=== PATIENT | male | born 2000 | race Two or more races ===

== ENCOUNTER 2025-02-26 22:44 | Observation (INO) | payer OTHER, SELFPAY ==
--- NOTE | 2025-02-26 22:47 | EKG_ITS ---
[facility] Test Date: 2025-02-26 Pat Name: NOMI BLUE Department: Room: - Gender: Male Bilingual Instructor: : 2000 Requested By: ED Temporary Provider Order Number: [id number] Reading MD: ED Temporary Provider Measurements Intervals [place] Rate: 106 P: RI: QRS: 39 QRSD: 90 T: 41 QT: 295 QTc: 392 Interpretive Statements ATRIAL FIBRILLATION WITH RAPID VENTRICULAR RESPONSE ABNORMAL RHYTHM ECG Compared to ECG 07/01/2023 11:37:40 Sinus tachycardia no longer present Short RI interval no longer present ST (T wave) deviation no longer present /store/S0/[id number].pdf
[2025-02-26 23:07] VITALS: BP 122/64; PULSE 108; RESP 18; TEMP 37.3; O2SAT 100
[2025-02-26 23:34] VITALS: PULSE 121
--- NOTE | 2025-02-26 23:38 | EDNOTE_ITS ---
ED Chest Pain RME/HPI General Chief Complaint: Chest Pain Stated Complaint: CHEST PAIN Time Seen by Provider: 02/26/25 23:21 Arrival date/time: 02/26/25 22:44 RME / HPI RME / HPI narrative: This section includes all my notes and documentations, including HPI, PE, and ED course. Virgil Dominguez MD HPI: 24yo male accompanied by his mom presents to the ED for a chief complaint of palpitations. Patient states he started having intermittent palpitations today at 2130 (a couple of hours ago), describing it as a hard beat . He reports associated left-sided chest pain. He endorses having a history of abnormal heart rates or rhythm, but was not given a specific diagnosis. Denies any history of aFib. He is not on any medications. Denies any cough, fever, chills or any other associated symptoms. No other complaints reported. ROS: All negative except as documented in HPI. Physical Exam: General: Alert and oriented. No acute distress when remaining still. Fever noted. Eyes: Conjunctivae and lids clear. ENT: No nasal congestion. Neck: Supple. Heart: Irregularly irregular rhythm (125 bpm). Lungs: No respiratory distress. Good air movement. No rhonchi, wheezing, rales. Abdomen: Soft and nontender. Legs: No clubbing, cyanosis, edema. Skin: Warm and dry. Neuro: Alert and oriented X 3. I reviewed all diagnostic test results. My interpretation of the EKG is atrial fibrillation with RVR. My interpretation of the chest x-ray is no acute findings, official radiology report is pending. Blood tests and urine tests remarkable for WBC 16.6, K 3.1. COVID/influenza negative. At this point, diagnoses include atrial fibrillation with RVR and fever. Treatment here included Cardizem bolus and drip, NS, Rocephin, Tylenol, Toradol, and Potassium Chloride. Significant improvement not noted. I discussed the case with our hospitalist. About the presentation and exam and diagnostics and treatments here. And need of further care in the hospital. Will accept the patient. Virgil Dominguez MD Related Data Allergies Allergy/AdvReac Type Severity Reaction Status Date / Time No Known Allergies Allergy Verified 02/26/25 22:45 Review of Systems Review of Systems Systems Reviewed: All systems reviewed, normal except as documented Past Medical History Past Medical History CARDIAC: Negative Congestive Heart Failure RESPIRATORY: Negative Chronic Obstructive Pulmonary Disease (COPD) GASTROINTESTINAL: Positive Gastrointestinal Bleed GENITOURINARY: Negative Renal Disease ENDOCRINE: Negative Diabetes Mellitus Type 1 or Diabetes Mellitus Type 2 Social History SMOKING STATUS: Never smoker ED Exam Narrative Physical exam: As noted in HPI. Course Course Course Narrative: CXR is ordered for determining the etiology of chest pain. Quality Measures none Orders Category Date Time Status Admit to Inpatient Status Routine Admission 02/27/25 02:54 Active Patient Condition Routine Admission 02/27/25 02:54 Ordered Bedside COVID-19 Antigen Test NOW Care 02/27/25 01:43 Active Bedside Influenza A&B Antigen Test NOW Care 02/27/25 01:43 Completed EKG (ED ONLY) *Do not use* NOW Care 02/26/25 22:47 Completed Notify provider NEEDED Care 02/27/25 02:54 Active Saline [Insert IV] NOW Care 02/26/25 23:39 Completed Consult to Cardiology Stat Cons 02/27/25 02:53 Ordered CA echo doppler complete Stat Exams 02/27/25 02:56 Ordered EKG (ED Only) Stat Exams 02/26/25 22:47 Draft XR chest 1V portable Stat Exams 02/27/25 01:43 Taken Alcohol, Blood Medical Stat Lab 02/26/25 23:30 Completed BNP [B-Type Natriuretic Peptide] Stat Lab 02/26/25 23:30 Completed Blood Culture (Lab) Stat Lab 02/27/25 02:06 Received CBC AM DRAW Lab 02/27/25 05:00 Ordered CBC AM DRAW Lab 02/28/25 05:00 Ordered CBC AM DRAW Lab 03/01/25 05:00 Ordered CBC Stat Lab 02/26/25 23:30 Completed CMP [Comprehensive Metabolic Panel] Stat Lab 02/26/25 23:30 Completed CRP [C-Reactive Protein] Stat Lab 02/27/25 02:02 Completed Comprehensive Metabolic Panel AM DRAW Lab 02/27/25 05:00 Ordered Comprehensive Metabolic Panel AM DRAW Lab 02/28/25 05:00 Ordered Comprehensive Metabolic Panel AM DRAW Lab 03/01/25 05:00 Ordered D-Dimer Stat Lab 02/26/25 23:30 Completed Drug Screen,Urine Stat Lab 02/27/25 00:02 Completed ESR [Sed Rate (ESR)] Stat Lab 02/27/25 02:02 Completed Free T4 (Free Thyroxine) Stat Lab 02/26/25 23:30 Completed Lactate (Lactic Acid) Stat Lab 02/27/25 02:02 Completed Lipid Panel Routine Lab 02/27/25 02:56 Ordered Magnesium AM DRAW Lab 02/27/25 05:00 Ordered Magnesium AM DRAW Lab 02/28/25 05:00 Ordered Magnesium AM DRAW Lab 03/01/25 05:00 Ordered Magnesium Stat Lab 02/26/25 23:30 Completed PT [Prothrombin Time with INR] Stat Lab 02/26/25 23:30 Completed PTT [Partial Thromboplastin Time] Stat Lab 02/26/25 23:30 Completed Phosphorous AM DRAW Lab 02/28/25 05:00 Ordered Phosphorous AM DRAW Lab 03/01/25 05:00 Ordered Phosphorous AM DRAW Lab 03/02/25 05:00 Ordered Procalcitonin Stat Lab 02/27/25 02:02 Completed RSV [Respiratory Syncytial Virus Ag] Stat Lab 02/27/25 01:50 Received Strep A Rapid Stat Lab 02/27/25 01:50 Received TSH [Thyroid Stimulating Hormone] Stat Lab 02/26/25 23:30 Completed Troponin I Stat Lab 02/26/25 23:30 Completed Acetaminophen Tab [Tylenol Tab] Med 02/27/25 02:54 Active 650 mg PO Q6H PRN Acetaminophen Tab [Tylenol Tab] Med 02/27/25 01:42 Discontinued 650 mg PO X1 ONE DILTIAZEM in D5W 125 MG Med 02/26/25 23:39 Discontinued 125 mg in 125 ml IV 5 mg/hr DILTIAZEM in D5W 125 MG Med 02/26/25 23:58 Active 125 mg in 125 ml IV 5 mg/hr Diltiazem Inj [Cardizem Inj] Med 02/26/25 23:39 Discontinued 20 mg IV X1 ONE KCL 10% Liq UDC 15 ML Med 02/27/25 01:42 Discontinued 40 meq PO X1 ONE Ketorolac Inj [Toradol Inj] Med 02/27/25 01:42 Discontinued 30 mg IVP X1 ONE Ondansetron Inj [Zofran Inj] Med 02/27/25 02:54 Active 4 mg IV Q6H PRN Senna [Senokot] Med 02/27/25 02:54 Active 1 tab PO QDAY PRN Sodium Chloride 0.9% 1000 ml [Ns] 1,000 ml Med 02/27/25 01:42 Discontinued IV 999 mls/hr Sodium Chloride 0.9% 1000 ml [Ns] 1,000 ml Med 02/27/25 02:07 Discontinued IV 999 mls/hr cefTRIAXone [Rocephin] 1,000 mg Med 02/27/25 02:07 Discontinued SODIUM CHLORIDE 0.9% (Popper) [Ns 0.9% (P)] 50 ml IV X1 Code Status Routine Oth 02/27/25 02:54 Ordered Oxygen Delivery PRN RT 02/27/25 02:54 Active Vital Signs Vital signs: Vital Signs Temperature 99.1 F 02/26/25 23:07 Pulse Rate 108 H 02/26/25 23:07 Respiratory Rate 18 02/26/25 23:07 Blood Pressure 122/64 02/26/25 23:07 Pulse Oximetry (%) 100 02/26/25 23:07 Oxygen Delivery Method Room Air 02/26/25 23:07 Chest Pain MDM Narrative MDM Narrative:: Scribe Attestation: 02/26/25 - Cary Contreras am scribing for and in the presence of Dr. Dominguez. Patient data External records reviewed:: [facility] previous records (Per chart review, patient was seen here on 07/01/23 for an abnormal EKG.) Clinical information provided by:: patient Social determinants that could affect healthcare access:: none Patient has the following chronic illnesses:: none How is presenting disease/condition affected by chronic disease/condition?: no chronic disease Evaluation data The following diagnostics were reviewed and interpreted by me:: lab results, radiology exam(s) and EKG tracing(s) Lab and/or radiology exams considered but not ordered:: none Interpretation Summary: Atrial fibrillation with RVR and fever and hypokalemia Medications / Prescriptions Medications or Prescriptions considered but not ordered:: none Medication administrations:: Medication Administration History Acetaminophen (Acetaminophen 325 Mg Tablet) 650 mg PO Q6H PRN PRN Reason: Fever >100.3 or pain 1-3 Stop: 03/29/25 02:53 Diltiazem HCl (Diltiazem In D5w 125 Mg) 125 mg in 125 mls @ 5 mls/hr IV .Q24H GERI Stop: 03/28/25 23:57 Last Admin: 02/27/25 00:08 Dose: 5 mg/hr, 5 mls/hr Documented By: JEAN MARIE Ondansetron HCl (Ondansetron Inj 2 Mg/Ml Inj 2 Ml) 4 mg IV Q6H PRN; Protocol PRN Reason: NAUSEA OR VOMITING Stop: 03/29/25 02:53 Sennosides (Senna Tablet) 1 tab PO QDAY PRN; Protocol PRN Reason: constipation Stop: 03/29/25 02:53 Discontinued Medications Acetaminophen (Acetaminophen 325 Mg Tablet) 650 mg PO X1 ONE Stop: 02/27/25 01:43 Last Admin: 02/27/25 02:01 Dose: 650 mg Documented By: EMMA Diltiazem HCl (Diltiazem Inj 5 Mg/Ml Vial 5 Ml) 20 mg IV X1 ONE Stop: 02/26/25 23:40 Last Admin: 02/26/25 23:56 Dose: 20 mg Documented By: JEAN MARIE Diltiazem HCl (Diltiazem In D5w 125 Mg) 125 mg in 125 mls @ 5 mls/hr IV .Q24H ONE; Protocol Stop: 02/27/25 23:38 Last Admin: 02/27/25 00:22 Dose: Not Given Documented By: EMMA Non-Admin Reason: Cancelled by Provider Sodium Chloride (Ns) 1,000 mls @ 999 mls/hr IV .Q1H1M ONE Stop: 02/27/25 02:42 Last Admin: 02/27/25 02:03 Dose: 999 mls/hr Documented By: EMMA Ceftriaxone Sodium 1,000 mg/ (Sodium Chloride) 50 mls @ 100 mls/hr IV X1 ONE Stop: 02/27/25 02:36 Last Admin: 02/27/25 02:31 Dose: 100 mls/hr Documented By: EMMA Sodium Chloride (Ns) 1,000 mls @ 999 mls/hr IV .Q1H1M ONE Stop: 02/27/25 03:07 Last Admin: 02/27/25 02:32 Dose: 999 mls/hr Documented By: EMMA Ketorolac Tromethamine (Ketorolac Inj 30 Mg/Ml Vial) 30 mg IVP X1 ONE Stop: 02/27/25 01:43 Last Admin: 02/27/25 01:59 Dose: 30 mg Documented By: MEMA Potassium Chloride (Potassium Chloride 10% 20 Meq/15 Ml Udc) 40 meq PO X1 ONE Stop: 02/27/25 01:43 Last Admin: 02/27/25 02:02 Dose: 40 meq Documented By: CB From me, he received only Cardizem bolus and drip, NS, Rocephin, Tylenol, Toradol, Potassium Chloride. Consultations Consultation(s) initiated? (list below): No Diagnosis Chest Pain Differential Diagnosis: pneumothorax, stable angina, unstable angina pectoris, atypical chest pain, st elevation myocardial infarction and other (Atrial fibrillation, atrial flutter, sepsis, electrolyte abnormalities) Most likely diagnosis given after review of the tests above:: Atrial fibrillation with RVR and fever and hypokalemia Admission Indicated Admission indicated?: indicated Explain why admission is indicated or not indicated:: Atrial fibrillation with RVR and fever and hypokalemia Admission Request Was there a request for admission?: Yes Admission Attestation Admission request attestation: Discussed case with Hospitalist service regarding admission. Discussed patients ED course, exam findings, labs, and radiology results. The Hospitalist [agrees] to accept the patient for admission. Disposition Plan Disposition Plan: Admit Discharge Plan Plan Patient Disposition: Admit Acute Care w/in Hospital Prescriptions/Referrals Referrals: No Primary/Family,Physician [Primary Care Provider] - In 1 week Problem List Clinical Impression: Atrial fibrillation with RVR, Fever Patient/Caregiver Discharge Instructions Print Language: Kinyarwanda Stand Alone Forms: Brittani Award Info., Patient Portal Info Letter
[2025-02-26 23:56] VITALS: BP 143/90; PULSE 123
[2025-02-26] MEDS: DILTIAZEM INJ 5 MG/ML VIAL 5 ML 20 MG IV (23:56)
[2025-02-27] VITALS (18 sets, daily range): BP systolic 105–127; BP diastolic 59–87; PULSE 98–127; RESP 12–26; TEMP 36.3–38.1; O2SAT 96–99
[2025-02-27] LABS: Basophils % (Auto) 0 % (0-2.5); Eosinophils # (Auto) 0.1 Thou/mm3 (0.0-0.5); Eosinophils % (Auto) 1 % (0-10); Hematocrit 41.5 % (41.0-53.0); Hemoglobin 14.6 g/dL (13.5-16.0); Immature Granulocytes % (Auto) 0 % (0-0); Immature Granulocytes Auto 0.06 Thou/mm3 (0.00-0.00); Lymphocytes # (Auto) 1.3 Thou/mm3 (1.0-4.8); Lymphocytes % (Auto) 8 % (10-50); Mean Corpuscular HGB Conc 35.2 g/dl (31.0-37.0); Mean Corpuscular Hemoglobin 28.7 pg (25.0-35.0); Mean Corpuscular Volume 82 fL (80-100); Monocytes # (Auto) 1.2 Thou/mm3 (0.0-0.8); Monocytes % (Auto) 7 % (0-12); Neutrophils # (Auto) 13.9 Thou/mm3 (1.8-7.7); Neutrophils % (Auto) 84 % (37-80); Nucleated Red Blood Cell % 0 /100 WBC (0); Platelet Count 252 Thou/mm3 (140-440); RDW Standard Deviation 38.5 fL (35.1-43.9); Red Blood Count 5.08 Miln/mm3 (4.50-5.90); White Blood Count 16.6 Thou/mm3 (3.8-10.6)
[2025-02-27] MEDS: DILTIAZEM in D5W 125 MG 125 MG/125 ML BAG IV (00:08)
[2025-02-27 00:16] LABS: INR 1.1 (0.9-1.3); Partial Thromboplastin Time 30.5 Seconds (22.0-36.0)
[2025-02-27 00:37] LABS: D-Dimer < 250 ng/mL (<600)
[2025-02-27 00:44] LABS: Alanine Aminotransferase 38 U/L (10-49); Albumin, Serum 4.8 gm/dL (3.5-5.0); Albumin/Globulin Ratio 1.8 (1.2-2.2); Alcohol, Blood Medical < 3.0 mg/dL (0-10.0); Alkaline Phosphatase 74 U/L (46-116); Anion Gap 12 (7-16); Aspartate Amino Transferase 28 U/L (0-34); B-Type Natriuretic Peptide < 20 pg/mL (0-100); BUN/Creatinine Ratio 13 Ratio (12-20); Bilirubin,Total 1.5 mg/dL (0.3-1.2); Blood Urea Nitrogen 12 mg/dL (9-23); Calcium 9.7 mg/dL (8.3-10.6); Calcium (Corrected) 9.7 mg/dL (8.5-10.1); Carbon Dioxide 26.1 mMol/L (20.0-31.0); Chloride 101 mMol/L (98-107); Creatinine (Component) 0.9 mg/dL (0.6-1.3); Free T4 (Free Thyroxine) 1.47 ng/dL (0.89-1.76); Globulin 2.6 gm/dL (2.3-3.5); Glucose 94 mg/dL (74-106); Magnesium 1.7 mg/dL (1.6-2.6); Osmolality,Calculated 277 (275-295); Potassium 3.1 mMol/L (3.4-5.1); Sodium 139 mMol/L (136-145); Thyroid Stimulating Hormone 1.91 uIU/mL (0.55-4.78); Total Protein 7.4 gm/dL (5.7-8.2); Troponin I < 0.002 ng/mL (0.0-0.045); eGFR > 60 See Note
[2025-02-27 01:29] LABS: Amphetamine/Methamp Scrn,U Negative (Negative); Barbiturate Screen,Urine Negative (Negative); Benzodiazepines Screen,Urine Negative (Negative); Benzoylecgonine Screen, Ur Negative (Negative); Fentanyl Screen,Urine Negative (Negative); Opiate Screen,Urine Negative (Negative); THC Screen,Urine Positive (Negative)
--- NOTE | 2025-02-27 01:43 | XR_ITS ---
Examination: AP chest single view Technique one AP portable upright chest single view Exam date and time: February 27, 2025 0151 hrs. Comparison July 01, 2023 Indications: Fever today. Findings: Normal heart size. Lungs are clear. The osseous structures are intact Impression: No active disease
[2025-02-27] MEDS: KETOROLAC INJ 30 MG/ML VIAL IVP (01:59)
[2025-02-27] MEDS: ACETAMINOPHEN 325 MG TABLET 650 MG PO (02:01)
[2025-02-27] MEDS: POTASSIUM CHLORIDE 10% 20 MEQ/15 ML UDC 40 MEQ PO (02:02)
[2025-02-27] MEDS: SODIUM CHLORIDE 0.9% 1000 ML 1,000 ML 999 ML IV ×2 (02:03→02:32)
[2025-02-27] MEDS: cefTRIAXone 1,000 MG in SODIUM CHLORIDE 0.9% (Popper) 50 ML 100 MG IV (02:31)
[2025-02-27 02:38] LABS: Sed Rate (ESR) 5 mm/hr (0-15)
[2025-02-27 02:46] LABS: C-Reactive Protein 1.5 mg/dL (0.0-0.9)
--- NOTE | 2025-02-27 02:56 | ECHO_ITS ---
Transthoracic Echo Report Ht (in): 68 Wt (lb): 132 Exam Location: Portable Status: Emergency General Internist: ELENI Mora^^^^ Indications: Procedure Performed: BP: 124 / 74 HR: 102 Rhythm: Atrial fibrillation Technical Quality: Good MEASUREMENTS (Male / Female) Normal Values 2D ECHO LV Diastolic Diameter PLAX 4.7 cm 4.2 - 5.9 / 3.9 - 5.3 cm LV Systolic Diameter PLAX 3.2 cm IVS Diastolic Thickness 0.7 cm 0.6 - 1.0 / 0.6 - 0.9 cm LVPW Diastolic Thickness 0.7 cm 0.6 - 1.0 / 0.6 - 0.9 cm LV Relative Wall Thickness 0.3 LVOT Diameter 1.7 cm Aortic Root Diameter 2.9 cm LA Systolic Diameter LX 2.6 cm 3.0 - 4.0 / 2.7 - 3.8 cm LV Ejection Fraction MOD 4C 65.9 % LV Cardiac Index MOD 4C 2536.3 cm?/min?m? LV Ejection Fraction 4C AL 67.0 % LV Cardiac Index 4C AL 2655.8 cm?/min?m? LA Volume Index 25.7 cm?/m? 16 - 28 cm?/m? DOPPLER AV Peak Velocity 102.5 cm/s AV Peak Gradient 4.2 mmHg AV Mean Gradient 2.5 mmHg AV Velocity Time Integral 18.3 cm LVOT Peak Velocity 96.1 cm/s LVOT Peak Gradient 3.7 mmHg LVOT Velocity Time Integral 21.6 cm LVOT Cardiac Index 2960.6 cm?/min?m? AV Area Cont Eq vti 2.7 cm? AV Area Cont Eq pk 2.1 cm? MV Area PHT 4.2 cm? Mitral E Point Velocity 88.0 cm/s Mitral A Point Velocity 41.4 cm/s Mitral E to A Ratio 2.1 LV E' Lateral Velocity 13.9 cm/s Mitral E to LV E' Lateral Ratio 6.3 LV E' Septal Velocity 14.2 cm/s Mitral E to LV E' Septal Ratio 6.2 PV Peak Velocity 93.3 cm/s PV Peak Gradient 3.5 mmHg RVOT Peak Velocity 66.5 cm/s FINDINGS Left Ventricle Normal left ventricular size, wall thickness, systolic function with no obvious regional wall motion abnormalities. Normal left ventricular diastolic filling pattern for age. The ejection fraction is visually estimated at 60-65 %. Right Ventricle The right ventricle is normal in size and systolic function. The estimated right ventricular systolic pressure, 17 mmHg. Left Atrium The left atrium is normal by two-dimensional, color flow and Doppler imaging with no structural abnormalities, no thrombus formation present. Right Atrium The right atrium is normal by two-dimensional imaging, color flow and Doppler imaging with no structural abnormalities, no thrombus formation present. Atrial Septum The interatrial septum appears normal with no evidence of a shunt. Aorta The aorta is normal by two-dimensional, color flow and Doppler interrogation. Mitral Valve The mitral valve is normal by two-dimensional, color flow and Doppler interrogation. There is no significant mitral valve regurgitation, stenosis or prolapse. Aortic Valve The aortic valve is trileaflet and normal by two-dimensional, color flow and Doppler interrogation. There is no significant aortic valve regurgitation. Tricuspid Valve There is trace tricuspid valve regurgitation. Pulmonic Valve The pulmonic valve is not well visualized. There is no significant pulmonic valve regurgitation. Vessels The pulmonary artery appears normal. The inferior vena cava pulmonary and hepatic veins appear normal. Pericardium The pericardium is normal by two-dimensional imaging. There is no significant pericardial effusion. CONCLUSIONS indication: Afib w/ RVR The transthoracic study is normal by two-dimensional, color flow imaging and Doppler interrogation. Normal left ventricular size and function.with EF 60-65%. RV appears normal RVSP 17 mmHg. Trace AGUSTO Lorenzo (Electronically Signed) Final Date: 27 February 2025 10:46
--- NOTE | 2025-02-27 03:01 | PD.RESHP ---
Documentation for date of: 02/27/25 [facility] History of Present Illness Chief complaint: palpitations History of present illness: The patient is a 24-year-old male with no significant previous medical history who came into the ED due to feeling of palpitations and heart racing, shortness of breath that started on 02/26/25 at approximately 9:30 PM when he was walking from his girlfriend's house. He denies anything unusual, denies recreational substances, denies drinking alcohol. He reports that in 2022 when he was supposed to undergo colonoscopy due to bloody stools he was sent to the ED due to abnormal EKG reading. EKG in the ED in 2022 showed sinus rhythm with PVCs, heart rate of 89. He was discharged back down from the ED. After that he will follow-up with Dr. Moeller, presidential helicopter crew chief. He reported that he underwent Holter monitoring, was supposed to undergo stress testing, but never received the code about it. He also reported that he was prescribed blood thinners, but he was not comfortable taking it. He does not know what kind of condition he was diagnosed with. He reported having similar episodes of palpitations earlier but they usually resolved on their own. ED course: Blood pressure 122/64, heart rate 108, afebrile, saturating well on room air. Labs were significant for WBC 16.6, potassium 3.1, C-reactive protein 1.5, procalcitonin 0.1. U tox was positive for marijuana. Bedside COVID and influenza tests are negative. Chest x-ray was negative for pneumonia. Patient received diltiazem push 20 mg and was started on diltiazem drip 5 mg/h, received potassium 40 mEq, 2 L of fluids, ceftriaxone once, paracetamol, ketorolac. Patient is going to be admitted for A-fib with RVR for treatment and management. Social history: Works in the [employer], denies smoking, last drink was on 02/24, drinks 8 cans of beers. Medications: None Family history: Hypertension in paternal grandmother Allergies: Denies Review of Systems Review of Systems Systems Reviewed: All systems reviewed, normal except as documented Exam Vital Signs Temp Pulse Resp BP Pulse Ox O2 Del Method 100.5 F H 99 17 120/78 99 Room Air 02/27/25 02:01 02/27/25 00:33 02/27/25 00:33 02/27/25 00:33 02/27/25 00:33 02/27/25 00:33 Narrative Exam Physical Exam General: Awake and in no acute distress. Conversational and non-toxic appearing. HEENT: Normocephalic, atraumatic, mucous membranes moist. Heart: Irregular rate and rhythm, no murmurs. Lungs: Clear to auscultation with no wheezing or crackles. Abdomen: Soft, nondistended, nontender, positive bowel sounds. ?No guarding or rebound tenderness. Neurologic: Alert and oriented x3, no gross neurological deficit, and patient able to move all 4 extremities. Extremities: No edema. Skin: No rash or ecchymoses. Results: Labs 02/26/25 23:30 02/26/25 23:30 Labs: Short CBC 02/26/25 Range/Units 23:30 WBC 16.6 H (3.8-10.6) Thou/mm3 Hgb 14.6 (13.5-16.0) g/dL Hct 41.5 (41.0-53.0) % Plt Count 252 (140-440) Thou/mm3 BMP 02/26/25 23:30 Sodium 139 Potassium 3.1 L Chloride 101 Carbon Dioxide 26.1 BUN 12 Creatinine 0.9 Glucose 94 Calcium 9.7 Cardiac Enzymes 02/26/25 Range/Units 23:30 Troponin I < 0.002 (0.0-0.045) ng/mL Liver Function 02/26/25 Range/Units 23:30 Total Bilirubin 1.5 H (0.3-1.2) mg/dL AST 28 (0-34) U/L ALT 38 (10-49) U/L Alkaline Phosphatase 74 (46-116) U/L Albumin 4.8 (3.5-5.0) gm/dL Quality Measures Quality Measures none Medications Home Medications and Allergies Allergies Allergy/AdvReac Type Severity Reaction Status Date / Time No Known Allergies Allergy Verified 02/26/25 22:45 Visit Medications Acetaminophen (Acetaminophen 325 Mg Tablet) 650 mg PO Q6H PRN PRN Reason: Fever >100.3 or pain 1-3 Stop: 03/29/25 02:53 Diltiazem HCl (Diltiazem In D5w 125 Mg) 125 mg in 125 mls @ 5 mls/hr IV .Q24H [facility] Stop: 03/28/25 23:57 Last Admin: 02/27/25 00:08 Dose: 5 mg/hr, 5 mls/hr Sodium Chloride (Ns) 1,000 mls @ 999 mls/hr IV .Q1H1M ONE Stop: 02/27/25 03:07 Last Admin: 02/27/25 02:32 Dose: 999 mls/hr Ondansetron HCl (Ondansetron Inj 2 Mg/Ml Inj 2 Ml) 4 mg IV Q6H PRN; Protocol PRN Reason: NAUSEA OR VOMITING Stop: 03/29/25 02:53 Sennosides (Senna Tablet) 1 tab PO QDAY PRN; Protocol PRN Reason: constipation Stop: 03/29/25 02:53 Discontinued Medications Acetaminophen (Acetaminophen 325 Mg Tablet) 650 mg PO X1 ONE Stop: 02/27/25 01:43 Last Admin: 02/27/25 02:01 Dose: 650 mg Diltiazem HCl (Diltiazem Inj 5 Mg/Ml Vial 5 Ml) 20 mg IV X1 ONE Stop: 02/26/25 23:40 Last Admin: 02/26/25 23:56 Dose: 20 mg Diltiazem HCl (Diltiazem In D5w 125 Mg) 125 mg in 125 mls @ 5 mls/hr IV .Q24H ONE; Protocol Stop: 02/27/25 23:38 Last Admin: 02/27/25 00:22 Dose: Not Given Sodium Chloride (Ns) 1,000 mls @ 999 mls/hr IV .Q1H1M ONE Stop: 02/27/25 02:42 Last Admin: 02/27/25 02:03 Dose: 999 mls/hr Ceftriaxone Sodium 1,000 mg/ (Sodium Chloride) 50 mls @ 100 mls/hr IV X1 ONE Stop: 02/27/25 02:36 Last Admin: 02/27/25 02:31 Dose: 100 mls/hr Ketorolac Tromethamine (Ketorolac Inj 30 Mg/Ml Vial) 30 mg IVP X1 ONE Stop: 02/27/25 01:43 Last Admin: 02/27/25 01:59 Dose: 30 mg Potassium Chloride (Potassium Chloride 10% 20 Meq/15 Ml Udc) 40 meq PO X1 ONE Stop: 02/27/25 01:43 Last Admin: 02/27/25 02:02 Dose: 40 meq Assessment & Plan Plan The patient is a 24-year-old male with no significant previous medical history who came into the ED due to feeling of palpitations and heart racing, shortness of breath that started on 02/26/25 at approximately 9:30 PM when he was walking from his girlfriend's house. Patient is going to be admitted for A-fib with RVR for treatment and management. #Afib with RVR Patient has been reporting feeling of palpitations previously, but never for that long. He had followed up with Dr. Moeller, presidential helicopter crew chief, was prescribed blood thinners, but did not take them. [id number] score is 0 Has bled score is 0 Plan: - diltiazem drip - presidential helicopter crew chief Dr. Mack consulted - echo ordered - lipid panel ordered Health maintenance: FEN: Cardiac diet DVT prophylaxis: GI prophylaxis: none Dispo: telemetry CODE STATUS: Full code Plan of care discussed with attending Dr. Wang, PGY-[address] Watson. Dinorah Lowry MD, PGY 1. Attending Provider Attestation/Addendum 24-year-old male patient was admitted for palpitations, feeling of heart racing, shortness of breath. Patient was found to be in rapid atrial fibrillation. Patient was started on Cardizem drip He smokes marijuana. He drinks beer. Denies history of heart murmur. Patient has no fever. Neck is supple no neck mass. His labs showed low potassium level. His troponin is less than 0.002. Patient is being admitted for atrial fibrillation with rapid ventricular response pending rate control. The patient is on IV Cardizem drip.
[2025-02-27 03:27] LABS: Respiratory Syncytial Virus Ag Negative (Negative); Strep A Rapid Negative (Negative)
[2025-02-27] MEDS: DILTIAZEM in D5W 125 MG 125 MG/125 ML BAG 10 MG IV ×2 (03:53→11:55)
--- NOTE | 2025-02-27 04:02 | PC.SS ---
Patient Sunny Arnold is a 24 Year old male admitted for AFIB with RVR. SS met with patient and patient's mother, Cynthia Arnold who reports is surrogate decision maker [phone]. Patint appeared alert and oriented to time place and situation. Patient reports he does not utilize any source of DME to assist with ambulation. Patient is able to complete all ADL's independently. Choice of pharmacy is [facility]. Patient is not established with a PCP. At time of discharge patient will return home. Patient's mother will provide transportation. Next of Kin: Mother, Cynthia Salivar [phone] Discharge Plan: Home
[2025-02-27 06:18] LABS: Basophils % (Auto) 0 % (0-2.5); Eosinophils % (Auto) 0 % (0-10); Hematocrit 39.1 % (41.0-53.0); Hemoglobin 13.6 g/dL (13.5-16.0); Immature Granulocytes % (Auto) 0 % (0-0); Immature Granulocytes Auto 0.04 Thou/mm3 (0.00-0.00); Lymphocytes # (Auto) 0.9 Thou/mm3 (1.0-4.8); Lymphocytes % (Auto) 7 % (10-50); Mean Corpuscular HGB Conc 34.8 g/dl (31.0-37.0); Mean Corpuscular Hemoglobin 28.8 pg (25.0-35.0); Mean Corpuscular Volume 83 fL (80-100); Monocytes # (Auto) 0.8 Thou/mm3 (0.0-0.8); Monocytes % (Auto) 6 % (0-12); Neutrophils # (Auto) 12.5 Thou/mm3 (1.8-7.7); Neutrophils % (Auto) 87 % (37-80); Nucleated Red Blood Cell % 0 /100 WBC (0); Platelet Count 219 Thou/mm3 (140-440); RDW Standard Deviation 39.8 fL (35.1-43.9); Red Blood Count 4.72 Miln/mm3 (4.50-5.90); White Blood Count 14.4 Thou/mm3 (3.8-10.6)
[2025-02-27 06:34] LABS: Alanine Aminotransferase 29 U/L (10-49); Albumin, Serum 4.2 gm/dL (3.5-5.0); Alkaline Phosphatase 64 U/L (46-116); Anion Gap 7 (7-16); Aspartate Amino Transferase 19 U/L (0-34); BUN/Creatinine Ratio 9 Ratio (12-20); Bilirubin,Total 1.2 mg/dL (0.3-1.2); Blood Urea Nitrogen 7 mg/dL (9-23); Calcium 8.5 mg/dL (8.3-10.6); Calcium (Corrected) 8.5 mg/dL (8.5-10.1); Carbon Dioxide 24.7 mMol/L (20.0-31.0); Cardiac Risk Estimate 3.5 RATIO (4.0-6.7); Chloride 107 mMol/L (98-107); Cholesterol 160 mg/dL (132-200); Creatinine (Component) 0.8 mg/dL (0.6-1.3); Estimated Creatinine Clearance 122.7 mL/min (>60); Globulin 2.1 gm/dL (2.3-3.5); Glucose 128 mg/dL (74-106); HDL Cholesterol 46 mg/dL (40-60); LDL Cholesterol,Calculated 97 mg/dL (0-130); Magnesium 1.8 mg/dL (1.6-2.6); Osmolality,Calculated 277 (275-295); Potassium 4.4 mMol/L (3.4-5.1); Sodium 139 mMol/L (136-145); Total Protein 6.3 gm/dL (5.7-8.2); Triglycerides 85 mg/dL (30-150); eGFR > 60 See Note
[2025-02-27 08:42] LABS: Glucose Estimated Average 103 mg/dL (80-131); Hemoglobin A1C 5.2 % Hgb (4.8-6.0)
[2025-02-27] MEDS: THIAMINE 100 MG TABLET PO (09:33)
[2025-02-27] MEDS: FOLIC ACID 1 MG TABLET PO (09:33)
[2025-02-27] MEDS: Magnesium Sulfate 4 GM Ivpb 4 GM/50 ML BAG IV (09:33)
--- NOTE | 2025-02-27 11:01 | PC.SS ---
SS follow up note; Echo and cardiology consult pending.
[2025-02-27] MEDS: METOPROLOL SUCCINATE XL 25 MG TABCR 50 MG PO (13:43)
--- NOTE | 2025-02-27 13:48 | ESCONSULT_ITS ---
<Statement entered by Poly Mack MD - 03/03/25 19:45> I personally evaluated examined the patient with PGY 2 Dr. Hodan Mcmillan agree with the treatment plan recommendation patient did have atrial fibrillation atypical chest pain but further examination showed that this could be multifocal atrial tachycardia with rapid heart rate agree with the treatment plan recommendation with beta-blockers will discharge the patient home I will evaluate him as an outpatient following discharge HPI Data of Consult Requesting Physician: Vidal Wang MD Admitting Provider: Vidal Wang MD Attending Provider: Vidal Wang MD Primary Care Provider: Physician No Primary/Family Consult Narrative Reason for consult: Tachyarrhythmia History of present illness: Patient is a 24-year-old male with no known past medical history who presented to the ED on 02/26/2025 with symptoms of palpitations and left-sided chest pain that started around 9:30 pm at night while he was sitting in his car driving home from his girlfriend's house. The pain was described as pressure-like and radiated to the left arm and neck, lasting about 1 hour. Earlier he took Advil 400 mg. Patient reports no prior episodes of similar symptoms. Patient denies any recent stressors or unexpected life events. Patient had 1 cup of coffee in the morning but this is a common routine for him. He denies any other drug usage. In 2022 patient was seen at [facility] at which time he was recommended to go to the ED due to an abnormal EKG which showed frequent PVCs. After that he was referred to Dr. Moeller outpatient who completed Holter monitoring but patient did not follow up with the results. Patient was recommended to be on a blood thinner at that time but did not take it, he did not have any other medications recommended. 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 He denies any known family history of heart disease or cardiac arrhythmias. Patient denies any history of smoking but has occasional social alcohol use. On 02/24 he had 8 cans of beers. ED Course: -Initial vitals were BP 122/64, HR 108, RR 18, Temp 99.1, O2 100% on room air -Labs significant for WBC 16.6, potassium 3.1, total bilirubin 1.5, TSH normal at 1.91, Free T4 normal at 1.47, CRP elevated at 1.5 -Urine toxicology was positive for marijuana -COVID, Influenza A & B, Strep A, and RSV were negative -CXR was normal -EKG shows tachycardia at a rate of 106, there is a question of afib however p waves are visible in most of the readings -In the ED, patient was given diltiazem 20 mg IV push x1 and started on diltiazem drip at 5 ml/hr -Patient was admitted for further management of tachyarrhythmia and Cardiology was consulted Review of Systems Review of systems otherwise negative except what is mentioned above. cc:: cc: Vidal Wang MD Past Medical History Past Medical History Comments PMH COMMENT: Past Medical History: None Family History: No known family history of cardiac disorders Surgical History: No prior surgery Social History: Denies history of smoking, occasional current alcohol use on weekends and socially, marijuana use Current Medications: None Allergies: No known drug allergies Exam Vital Signs Temp Pulse Resp BP Pulse Ox O2 Del Method O2 Flow Rate 97.8 F 104 H 14 111/69 99 Room Air 2 02/27/25 12:00 02/27/25 13:43 02/27/25 12:00 02/27/25 13:43 02/27/25 12:00 02/27/25 12:00 02/27/25 04:00 Narrative Exam Physical Exam General: Awake and in no acute distress. Conversational and non-toxic appearing. HEENT: Normocephalic, atraumatic, mucous membranes moist. Heart: Tachycardic rate and regular rhythm, normal S1 and S2, no murmurs. Lungs: Clear to auscultation with no wheezing or crackles. Abdomen: Soft, nondistended, nontender, positive bowel sounds. ?No guarding or rebound tenderness. Neurologic: Alert and oriented x3, no gross neurological deficit, and patient able to move all 4 extremities. Extremities: No edema. Skin: No rash or ecchymoses. Results Labs 02/27/25 05:59 02/27/25 05:59 Labs: Short CBC 02/26/25 02/27/25 Range/Units 23:30 05:59 WBC 16.6 H 14.4 H (3.8-10.6) Thou/mm3 Hgb 14.6 13.6 (13.5-16.0) g/dL Hct 41.5 39.1 L (41.0-53.0) % Plt Count 252 219 D (140-440) Thou/mm3 BMP 02/26/25 02/27/25 23:30 05:59 Sodium 139 139 Potassium 3.1 L 4.4 D Chloride 101 107 Carbon Dioxide 26.1 24.7 BUN 12 7 L Creatinine 0.9 0.8 Glucose 94 128 H Calcium 9.7 8.5 Cardiac Enzymes 02/26/25 Range/Units 23:30 Troponin I < 0.002 (0.0-0.045) ng/mL Liver Function 02/26/25 02/27/25 Range/Units 23:30 05:59 Total Bilirubin 1.5 H 1.2 (0.3-1.2) mg/dL AST 28 19 (0-34) U/L ALT 38 29 (10-49) U/L Alkaline Phosphatase 74 64 (46-116) U/L Albumin 4.8 4.2 D (3.5-5.0) gm/dL Quality Measures Quality Measures none Medications Home Medications and Allergies Allergies Allergy/AdvReac Type Severity Reaction Status Date / Time No Known Allergies Allergy Verified 02/26/25 22:45 Visit Medications Acetaminophen (Acetaminophen 325 Mg Tablet) 650 mg PO Q6H PRN PRN Reason: Fever >100.3 or pain 1-3 Stop: 03/29/25 02:53 Folic Acid (Folic Acid 1 Mg Tablet) 1 mg PO BID [facility] Stop: 03/04/25 08:59 Last Admin: 02/27/25 09:33 Dose: 1 mg Diltiazem HCl (Diltiazem In D5w 125 Mg) 125 mg in 125 mls @ 10 mls/hr IV .[id number] [facility]; Protocol Stop: 02/27/25 14:30 Last Admin: 02/27/25 11:55 Dose: 10 mg/hr, 10 mls/hr Lorazepam (Lorazepam 0.5 Mg Tablet) 0.5 mg PO Q4HR PRN PRN Reason: CIWA Score 2-6 Stop: 03/04/25 08:18 Lorazepam (Lorazepam 0.5 Mg Tablet) 1 mg PO Q4HR PRN PRN Reason: CIWA SCORE 7-11 Stop: 03/04/25 08:18 Lorazepam (Lorazepam 0.5 Mg Tablet) 2 mg PO Q4HR PRN PRN Reason: CIWA SCORE 12-15 Stop: 03/04/25 08:18 Lorazepam (Lorazepam 2 Mg/Ml Vial) 1 mg IV X1 PRN PRN Reason: Breakthrough Agitation Metoprolol Succinate (Metoprolol Succinate Xl 25 Mg Tabcr) 50 mg PO QDAY GERI Stop: 03/29/25 13:29 Last Admin: 02/27/25 13:43 Dose: 50 mg Ondansetron HCl (Ondansetron Inj 2 Mg/Ml Inj 2 Ml) 4 mg IV Q6H PRN; Protocol PRN Reason: NAUSEA OR VOMITING Stop: 03/29/25 02:53 Sennosides (Senna Tablet) 1 tab PO QDAY PRN; Protocol PRN Reason: constipation Stop: 03/29/25 02:53 Thiamine HCl (Thiamine 100 Mg Tablet) 100 mg PO BID [facility] Stop: 03/04/25 08:59 Last Admin: 02/27/25 09:33 Dose: 100 mg Discontinued Medications Acetaminophen (Acetaminophen 325 Mg Tablet) 650 mg PO X1 ONE Stop: 02/27/25 01:43 Last Admin: 02/27/25 02:01 Dose: 650 mg Diltiazem HCl (Diltiazem Inj 5 Mg/Ml Vial 5 Ml) 20 mg IV X1 ONE Stop: 02/26/25 23:40 Last Admin: 02/26/25 23:56 Dose: 20 mg Diltiazem HCl (Diltiazem In D5w 125 Mg) 125 mg in 125 mls @ 5 mls/hr IV .Q24H ONE; Protocol Stop: 02/27/25 23:38 Last Admin: 02/27/25 00:22 Dose: Not Given Diltiazem HCl (Diltiazem In D5w 125 Mg) 125 mg in 125 mls @ 5 mls/hr IV .Q24H GERI Stop: 03/28/25 23:57 Last Infusion: 02/27/25 03:28 Dose: Infused Sodium Chloride (Ns) 1,000 mls @ 999 mls/hr IV .Q1H1M ONE Stop: 02/27/25 02:42 Last Infusion: 02/27/25 03:19 Dose: Infused Ceftriaxone Sodium 1,000 mg/ (Sodium Chloride) 50 mls @ 100 mls/hr IV X1 ONE Stop: 02/27/25 02:36 Last Infusion: 02/27/25 03:19 Dose: Infused Sodium Chloride (Ns) 1,000 mls @ 999 mls/hr IV .Q1H1M ONE Stop: 02/27/25 03:07 Last Infusion: 02/27/25 03:54 Dose: Infused Magnesium Sulfate (Magnesium Sulfate Ivpb) 4 gm in 50 mls @ 12.5 mls/hr IV X1 ONE Stop: 02/27/25 12:12 Last Admin: 02/27/25 09:33 Dose: 12.5 mls/hr Ketorolac Tromethamine (Ketorolac Inj 30 Mg/Ml Vial) 30 mg IVP X1 ONE Stop: 02/27/25 01:43 Last Admin: 02/27/25 01:59 Dose: 30 mg Potassium Chloride (Potassium Chloride 10% 20 Meq/15 Ml Udc) 40 meq PO X1 ONE Stop: 02/27/25 01:43 Last Admin: 02/27/25 02:02 Dose: 40 meq Assessment & Plan Plan 24-year-old male with no known past medical history who presented to the ED on 02/26/2025 with symptoms of palpitations and left-sided chest pain that started around 9:30 pm at night while he was sitting in his car driving home from his girlfriend's house. #Tachyarrhythmia #Possible multifocal atrial tachycardia Patient presents for first time episode of palpitations associated with left- sided chest pain which lasted about 1 hour. Patient has been reporting feeling of palpitations previously, but never for that long. 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 Patient had Holter monitoring done but was lost to follow up. [id number] score is 0 02/27/2025 Echo showed normal by two-dimensional, color flow imaging and Doppler interrogation. Normal left ventricular size and function.with EF 60-65%. RV appears normal RVSP 17 mmHg. Trace TR A1c is 5.2 Lipid panel showed TC 160, TG 85, LDL 97, HDL 46 TSH normal at 1.91 Free T4 normal at 1.47 -May start on metoprolol succinate 50 mg qday, if patient tolerates well, discharge on this dose -Discontinue diltiazem drip 1 hour after first dose of above -Follow up in cardiology clinic 1 week after discharge #Hypokalemia Patient had initiate potassium 3.1, was repleted with 40 mEq Magnesium 1.8 repleted with 4 gm IV mag sulfate -Repleted and keep K>4.0 and Mag>2.0 Patient was discussed with the Cardiology attending, Dr. Mack. Thank you for allowing us to participate in the care of this patient. Senia Mcmillan, PGY-2
--- NOTE | 2025-02-27 14:48 | ESPR_ITS ---
Documentation for date of: 02/27/25 Subjective Subjective Interval history: Patient seen and examined at bedside. EKG reviewed, more in consistency with multifocal atrial tachycardia. Consulted cardiology, patient started on metoprolol succinate 50 mg daily, will discontinue diltiazem drip 1 hour after. Patient will need close outpatient follow-up, if patient is feeling well later today, can possibly discharge. Exam Vital Signs Temp Pulse Resp BP Pulse Ox O2 Del Method O2 Flow Rate 97.8 F 104 H 14 111/69 99 Room Air 2 02/27/25 12:00 02/27/25 13:43 02/27/25 12:00 02/27/25 13:43 02/27/25 12:00 02/27/25 12:00 02/27/25 04:00 Narrative Exam Physical Exam General: Awake and in no acute distress. Conversational and non-toxic appearing. HEENT: Normocephalic, atraumatic, mucous membranes moist. Heart: Tachycardic rate and regular rhythm, normal S1 and S2, no murmurs. Lungs: Clear to auscultation with no wheezing or crackles. Abdomen: Soft, nondistended, nontender, positive bowel sounds. ?No guarding or rebound tenderness. Neurologic: Alert and oriented x3, no gross neurological deficit, and patient able to move all 4 extremities. Extremities: No edema. Skin: No rash or ecchymoses. Objective Labs 02/27/25 05:59 02/27/25 05:59 Labs: Laboratory Results - last 24 hr 02/26/25 02/27/25 02/27/25 23:30 00:02 01:50 WBC 16.6 H RBC 5.08 Hgb 14.6 Hct 41.5 MCV 82 MCH 28.7 MCHC 35.2 RDW Std Deviation 38.5 Plt Count 252 Neut % (Auto) 84 H Lymph % (Auto) 8 L [place] % (Auto) 7 Eos % (Auto) 1 Baso % (Auto) 0 Neut # (Auto) 13.9 H Lymph # (Auto) 1.3 [place] # (Auto) 1.2 H Eos # (Auto) 0.1 Baso # (Auto) 0.0 Immature Gran # (Auto) 0.06 H Absolute Nucleated RBC 0.00 Immature Gran % 0 Nucleated RBC % 0 ESR PT 12.0 INR 1.1 APTT 30.5 D-Dimer < 250 Sodium 139 Potassium 3.1 L Chloride 101 Carbon Dioxide 26.1 Anion Gap 12 BUN 12 Creatinine 0.9 Estim Creat Clear Calc 109.0 eGFR > 60 BUN/Creatinine Ratio [address] Glu mg/dL Hemoglobin A1c Calculated Osmolality 277 Lactic Acid Calcium 9.7 Corrected Calcium 9.7 Magnesium 1.7 Total Bilirubin 1.5 H AST 28 ALT 38 Alkaline Phosphatase 74 Troponin I < 0.002 C-Reactive Prot, Quant B-Natriuretic Peptide < 20 Total Protein 7.4 Albumin 4.8 Globulin 2.6 Albumin/Globulin Ratio 1.8 Triglycerides Cholesterol LDL Cholesterol, Calc HDL Cholesterol Cholesterol/HDL Ratio Procalcitonin TSH 1.91 Free T4 1.47 Urine Opiates Screen Negative Urine Fentanyl Screen Negative Ur Barbiturates Screen Negative U Amphetamin/Meth Scrn Negative U Benzodiazepines Scrn Negative U Cocaine Metab Screen Negative U Marijuana (THC) Screen Positive A Ethyl Alcohol < 3.0 RSV Rapid Negative Group A Strep Rapid Negative 02/27/25 02/27/25 02:02 05:59 WBC 14.4 H RBC 4.72 Hgb 13.6 Hct 39.1 L MCV 83 MCH 28.8 MCHC 34.8 RDW Std Deviation 39.8 Plt Count 219 D Neut % (Auto) 87 H Lymph % (Auto) 7 L [place] % (Auto) 6 Eos % (Auto) 0 Baso % (Auto) 0 Neut # (Auto) 12.5 H Lymph # (Auto) 0.9 L [place] # (Auto) 0.8 Eos # (Auto) 0.0 Baso # (Auto) 0.0 Immature Gran # (Auto) 0.04 H Absolute Nucleated RBC 0.00 Immature Gran % 0 Nucleated RBC % 0 ESR 5 PT INR APTT D-Dimer Sodium 139 Potassium 4.4 D Chloride 107 Carbon Dioxide 24.7 Anion Gap 7 BUN 7 L Creatinine 0.8 Estim Creat Clear Calc 122.7 eGFR > 60 BUN/Creatinine Ratio 9 L Glucose [address] Glu mg/dL 103 Hemoglobin A1c 5.2 Calculated Osmolality 277 Lactic Acid 1.0 Calcium 8.5 Corrected Calcium 8.5 Magnesium 1.8 Total Bilirubin 1.2 AST 19 ALT 29 Alkaline Phosphatase 64 Troponin I C-Reactive Prot, Quant 1.5 H B-Natriuretic Peptide Total Protein 6.3 Albumin 4.2 D Globulin 2.1 L Albumin/Globulin Ratio 2.0 Triglycerides 85 Cholesterol 160 LDL Cholesterol, Calc 97 HDL Cholesterol 46 Cholesterol/HDL Ratio 3.5 L Procalcitonin 0.10 TSH Free T4 Urine Opiates Screen Urine Fentanyl Screen Ur Barbiturates Screen U Amphetamin/Meth Scrn U Benzodiazepines Scrn U Cocaine Metab Screen U Marijuana (THC) Screen Ethyl Alcohol RSV Rapid Group A Strep Rapid Quality Measures Quality Measures none Assessment & Plan Assessment Current Active Medications: Generic Name Dose Route Start Last Admin Trade Name Freq PRN Reason Stop Dose Admin Acetaminophen 650 mg 02/27/25 02:54 Acetaminophen 325 Mg Tablet PO 03/29/25 02:53 Q6H PRN Fever >100.3 or pain 1-3 Folic Acid 1 mg 02/27/25 09:00 02/27/25 09:33 Folic Acid 1 Mg Tablet PO 03/04/25 08:59 1 mg BID GERI Administration Lorazepam 0.5 mg 02/27/25 08:19 Lorazepam 0.5 Mg Tablet PO 03/04/25 08:18 Q4HR PRN CIWA Score 2-6 Lorazepam 1 mg 02/27/25 08:19 Lorazepam 0.5 Mg Tablet PO 03/04/25 08:18 Q4HR PRN CIWA SCORE 7-11 Lorazepam 2 mg 02/27/25 08:19 Lorazepam 0.5 Mg Tablet PO 03/04/25 08:18 Q4HR PRN CIWA SCORE 12-15 Lorazepam 1 mg 02/27/25 08:19 Lorazepam 2 Mg/Ml Vial IV X1 PRN Breakthrough Agitation Metoprolol Succinate 50 mg 02/27/25 13:30 02/27/25 13:43 Metoprolol Succinate Xl 25 Mg Tabcr PO 03/29/25 13:29 50 mg QDAY GERI Administration Ondansetron HCl 4 mg 02/27/25 02:54 Ondansetron Inj 2 Mg/Ml Inj 2 Ml IV 03/29/25 02:53 Q6H PRN NAUSEA OR VOMITING Protocol Sennosides 1 tab 02/27/25 02:54 Senna Tablet PO 03/29/25 02:53 QDAY PRN constipation Protocol Thiamine HCl 100 mg 02/27/25 09:00 02/27/25 09:33 Thiamine 100 Mg Tablet PO 03/04/25 08:59 100 mg BID GERI Administration Plan Assessment and Plan: Summary: The patient is a 24-year-old male with no significant previous medical history who came into the ED due to feeling of palpitations and heart racing, shortness of breath that started on 02/26/25 at approximately 9:30 PM when he was walking from his girlfriend's house. Patient is going to be admitted for suspected A-fib with RVR for treatment and management. # Tachyarrhythmia # High suspicion of multifocal atrial tachycardia Patient has been reporting feeling of palpitations previously, but never for that long. 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 [id number] score is 0 HAS BLED score is 0. TSH 1.91, free T4 1.47 Triglyceride 85, cholesterol 160, LDL 97, HDL 46 Hemoglobin A1c 5.2 ECHO 02/27/2025: The transthoracic study is normal by two-dimensional, color flow imaging and Doppler interrogation. Normal left ventricular size and function.with EF 60-65%. RV appears normal RVSP 17 mmHg. Trace TR Plan: - Started on metoprolol succinate 50 mg daily - Will discontinue diltiazem drip - Will keep potassium more than 4 and magnesium more than 2 - Consulted cardiology Dr. Mack, appreciate recommendations #Electrolyte abnormalities #Hypokalemia Health maintenance: FEN: Cardiac diet DVT prophylaxis: Not indicated GI prophylaxis: Not indicated Dispo: Telemetry CODE STATUS: Full code Case discussed with Attending Dr. Alexander and Dr. Damon PGY2. Jovany Jimenes PGY1 Disclaimer: This note was dictated by speech recognition. Minor errors in clip on sunglasses assembler may be present due to voice recognition software. Attending Provider Attestation/Addendum I reviewed labs, imaging, EKG, home medications and prior available records. Face to face evaluation was performed by me. I have personally examined the patient and discussed assessment and plan with the IM team. I reviewed the resident note and agree with the plan with exceptions as below. Tachyarrhythmia Multifocal atrial tachycardia Leukocytosis, improved Marijuana use Alcohol use Weaned off diltiazem drip. Discussed with cardiology: Start metoprolol 50 mg extended release Outpatient follow-up with cardiology Echocardiogram showed preserved EF with no pertinent abnormalities WBC down trended Counseled the patient regarding the importance of avoiding marijuana and drinking alcohol within limits Discussed with cardiology: Okay to discharge today Time spent is 35 minutes. More than 50% of the time was spent on patient education and coordination of care.
--- NOTE | 2025-02-27 17:11 | PD.RESDS ---
Planned Discharge Date 02/27/25 DS: Providers Provider Date of admission: 02/27/25 02:54 Primary care physician: Physician No Primary/Family Admitting Provider: Vidal Wang MD Attending Provider on Admission: Vidal Wang MD Consults: 02/27/25 02:53 Consult to Cardiology Stat Comment: Afib with RVR Consulting Provider: Poly Mack Attending Provider on DC: Andi Alexander MD Discharging Provider: Andi Alexander MD Anticipated date of discharge: 02/27/25 DS: Diagnosis Problem List Completed Was Problem List Reviewed/Reconciled?: Yes Hospital Course Hospital Course Hospital course: Hospital course: Mr. Persaud is a 24-year-old male with no significant past medical history who presented to [facility] emergency department on 02/26/2025 with a chief complaint of palpitations and heart racing along with some shortness of breath. EKG on presentation was suspicious for atrial fibrillation, patient was started on diltiazem drip in the emergency department and patient was admitted to hospital for further workup. Per review of telemetry and EKG re-review there was suspicion of multifocal atrial tachycardia, cardiology was consulted patient has underlying tachyarrhythmia with high possibility of multifocal atrial tachycardia. Patient's potassium and magnesium was repleted. Patient's heart rate improved with metoprolol succinate 50 mg daily, diltiazem drip was discontinued. Patient reported that he is feeling well, was assessed by cardiology and discussed with cardiology, patient to follow-up outpatient with cardiology in 1 week. Patient has no primary care physician, patient to follow-up with [facility] to establish care. Otherwise patient responded well to hospital treatment and is stable for discharge. Patient is discharged on metoprolol succinate 50 mg daily. Discharge diagnosis: #Tachyarrhythmia #Suspicion of multifocal atrial tachycardia #Hypokalemia #Leukocytosis #THC positive Case discussed with Attending Dr. Alexander and Dr. Damon PGY2. Jovany Jimenes PGY1 Disclaimer: This note was dictated by speech recognition. Minor errors in digital asset manager may be present due to voice recognition software. Time Spent with Patient Time attestation: Total time spent providing and/or coordinating discharge services: Greater than 35 minutes Time spent: Greater than 30 minutes Exam Vital Signs Temp Pulse Resp BP Pulse Ox O2 Del Method O2 Flow Rate 98.7 F 103 H 18 105/64 98 Room Air 2 02/27/25 16:00 02/27/25 16:00 02/27/25 16:00 02/27/25 16:00 02/27/25 16:00 02/27/25 16:00 02/27/25 04:00 Narrative Exam Physical Exam General: Awake and in no acute distress. Conversational and non-toxic appearing. HEENT: Normocephalic, atraumatic, mucous membranes moist. Heart: Tachycardic rate and regular rhythm, normal S1 and S2, no murmurs. Lungs: Clear to auscultation with no wheezing or crackles. Abdomen: Soft, nondistended, nontender, positive bowel sounds. ?No guarding or rebound tenderness. Neurologic: Alert and oriented x3, no gross neurological deficit, and patient able to move all 4 extremities. Extremities: No edema. Skin: No rash or ecchymoses. Discharge Plan Plan Patient Disposition: HOME (Self Care) Patient condition on transfer: Stable Prescriptions/Referrals Prescriptions/Med Rec: New metoprolol succinate [Toprol XL] 50 mg tablet extended release 24 hr 50 mg PO QDAY 30 Days Qty: 30 0RF Referrals: No Primary/Family,Physician [Primary Care Provider] - Poly Mack MD [Physician] - Jovany Jimenes MD [Resident] - Patient/Caregiver Discharge Instructions Discharge Activity: activity as tolerated Other Discharge Activity Instructions:: Continue metoprolol succinate 50 mg daily. Limit caffeine and alcohol intake. Follow-up outpatient with Dr. Poly Mack in 1 week. Follow-up in [facility] in 1 to 2 weeks. Call [phone] to make an appointment Address: [facility], [facility] [address], [address], [place], [address] Return to ED if symptoms return or worsen. Other Discharge Diet Instructions: Regular Education Materials: Your Heart's Electrical System, Understanding Tachycardia Print Language: Cypriot Stand Alone Forms: Brittani Award Info., Patient Portal Info Letter, Work/Release Restrictions Discharge Order Discharge Orders: Discharge (Routine); Ordered 02/27/25 Ordered By: Jovany Jimenes Quality Discharge Quality Measures VTE prophylaxis Attestestation Attestation Diane reviewed labs, imaging, EKG, home medications and prior available records. Face to face evaluation was performed by me. I have personally examined the patient and discussed assessment and plan with the IM team. I reviewed the resident note and agree with the plan with exceptions as below. Tachyarrhythmia Multifocal atrial tachycardia Leukocytosis, improved Marijuana use Alcohol use Weaned off diltiazem drip. Discussed with cardiology: Start metoprolol 50 mg extended release Outpatient follow-up with cardiology Echocardiogram showed preserved EF with no pertinent abnormalities WBC down trended Counseled the patient regarding the importance of avoiding marijuana and drinking alcohol within limits Discussed with cardiology: Okay to discharge today Time spent is 35 minutes. More than 50% of the time was spent on patient education and coordination of care.
== END 2025-02-27 17:50 | disposition home or self-care (01) ==
LOC: SERX 02-27 03:01 → SERHOLD 02-27 07:35 → S2NX 02-27 14:44
PROVIDERS: Admitting Provider Internal Medicine; Emergency Provider Emergency Medicine; Visit Provider Internal Medicine
DX: I48.91 Unspecified atrial fibrillation (principal); E87.6 Hypokalemia; D72.829 Elevated white blood cell count, unspecified; E87.8 Other disorders of electrolyte and fluid balance, not elsewhere classified; I49.3 Ventricular premature depolarization; Z01.810 Encounter for preprocedural cardiovascular examination; F12.129 Cannabis abuse with intoxication, unspecified
CPT/HCPCS: 36415; 71045; 80053; 80061; 80307; 80320; 83036; 83605; 83735; 83880; 84145; 84439; 84443; 84484; 85025; 85379; 85610; 85652; 85730; 86140; 87040; 87400; 87634; 87651; 87811; 93005; 93306; 96360; 96361; 96365; 96366; 96375; 99285; G0378; J0696; J1885; J3475; J3490; J7030; J7050; A9270; G0480

== ENCOUNTER 2025-03-02 13:22 | Outpatient (AMB) | payer OTHER, SELFPAY ==
[2025-03-02 13:33] VITALS: BP 112/68; PULSE 118; RESP 17; TEMP 36.8; O2SAT 98; BMI 20.2
--- NOTE | 2025-03-02 13:33 | PD.RESCLINIC ---
Vital Signs 03/02/25 13:33 Height 1.73 m Height Method Stated Weight 60.384 kg Weight Measurement Method Standing Scale BMI 20.2 BP 112/68 Blood Pressure Source Automatic Cuff Blood Pressure Location Left Upper Arm Position Sitting Respiration 17 Pulse 118 H Pulse Source Monitor Temp 98.2 F Temp Source Temporal Artery Scan Pulse Oximetry (%) 98 Oxygen Delivery Method Room Air Allergies/Meds Allergies & Medications Allergies No Known Allergies Allergy (Verified 03/02/25 13:33) Medication Reconciliation metoprolol succinate 50 mg tablet,extended release 24 hr (Toprol XL) 50 mg PO QDAY 30 days #30 tabs 02/27/25 [Rx Confirmed 03/02/25] magnesium oxide 200 mg PO BID 1 month #60 tabs 03/02/25 [Rx] MA Intake Visit Data Collection New Patient or Established: Established Patient (seen at [facility] within 3 years) Seen by Clinical Staff ONLY (RN/MA): No Pain Present Currently: No Pain scale:: 0 Pain Scale Used: English-Shah/Numerical Manager [employer] Required: No PCP or OBGYN visit in last 3 months: No Hx Now: No Do You Feel Safe at Home: Yes Authorities Contacted: N/A Smoking Status Smoking Status: Never smoker Immunization / Flu Flu Vaccine in the Last 12 Months: No Flu Vaccine Exclusion Criteria: No Exclusion Criteria Past Medical History Past Medical History CARDIAC: Negative Congestive Heart Failure RESPIRATORY: Negative Chronic Obstructive Pulmonary Disease (COPD) GASTROINTESTINAL: Positive Gastrointestinal Bleed GENITOURINARY: Negative Renal Disease ENDOCRINE: Negative Diabetes Mellitus Type 1 or Diabetes Mellitus Type 2 Social History SMOKING STATUS: Smoking status: Never smoker ALCOHOL: Alcohol Intake: Current ALCOHOL FREQUENCY: Alcohol Intake Frequency: holidays/special occasions only HOUSING: Housing: House LIVES WITH: Lives With: Family Patient Portal Kirsten Social History Living Situation History Housing: House Tobacco History Smoking Status: Never smoker Alcohol History Alcohol Intake: Current Alcohol Intake Frequency: holidays/special occasions only Domestic Abuse History Do You Feel Safe at Home: Yes Review of Systems Report any current symptoms Only answer those that you have currently: Past Medical History Past Medical History Have you ever been diagnosed with any of the following: Cardiology Problems Congestive Heart Failure: No Respiratory Problems Chronic Obstructive Pulmonary Disease (COPD): No Stomache/Intestinal Problems Gastrointestinal Bleed: Yes Genital/Urinary Problems Renal Disease: No Endocrine Problems Diabetes Mellitus Type 1: No Diabetes Mellitus Type 2: No History of Present Illness HPI Narrative Mr. Arnold is a 24-year-old male with past medical history of tachyarrhythmia who presented to [facility] for posthospital discharge follow-up. Patient reports that he does not have any symptoms currently, his palpitations have resolved. Patient was started on metoprolol succinate 50 mg daily during the hospital stay, cardiology was consulted, cardiology recommended to follow-up with them outpatient for Holter monitoring. 03/02/2025: Patient currently reports no symptoms, home blood pressure and heart rate readings reviewed, heart rate less than 110 at home, blood pressure within normal limits. Patient's hemoglobin A1c, TSH at lipid panel were within normal limits during the hospital stay. Will prescribe magnesium oxide supplement, to keep magnesium greater than 2. Patient to follow-up with potter or ceramic artist Dr. Mack next week. Review of Systems Review of Systems Systems Reviewed: All systems reviewed, normal except as documented Objective/Exam Narrative Physical exam: Physical Exam General: Awake and in no acute distress. Conversational and non-toxic appearing. HEENT: Normocephalic, atraumatic, mucous membranes moist. Heart: TAchycardic and regular rhythm, no murmurs. Lungs: Clear to auscultation with no wheezing or crackles. Abdomen: Soft, nondistended, nontender, positive bowel sounds. ?No guarding or rebound tenderness. Neurologic: Alert and oriented x3, no gross neurological deficit, and patient able to move all 4 extremities. Extremities: No edema. Skin: No rash or ecchymoses. Assessment & Plan Diagnosis / Problem List (1) Tachyarrhythmia: Status: Acute Assessment & Plan: Reports that he does not have any symptoms currently, his palpitations have resolved. Patient was started on metoprolol succinate 50 mg daily during the hospital stay, cardiology was consulted, cardiology recommended to follow-up with them outpatient for Holter monitoring. Patient currently reports no symptoms, home blood pressure and heart rate readings reviewed, heart rate less than 110 at home, blood pressure within normal limits. Patient's hemoglobin A1c, TSH at lipid panel were within normal limits during the hospital stay. Plan: - Continue metoprolol succinate 50 mg daily - Will prescribe magnesium oxide - Follow-up with potter or ceramic artist Dr. Mack outpatient - Return to clinic as needed Additional Plan Case discussed with Attending Dr. Hill. Jovany Jimenes PGY1 Disclaimer: This note was dictated by speech recognition. Minor errors in anaesthetic technician may be present due to voice recognition software. Physician Billing TCM TCM: High 1-7 days-CPT [id number] [facility] Level of Care Nursing/Assessment Patient Status: Established Patient Nursing Assessment/Reassessment: Medication Reconciliation, Update PMH in EMR and Vital Signs Coordination of Care: Complex Care and Chronic Disease 1-5, Consent,records obtained, informed consent, Education Simp Pt/Fam and Staff clarify orders Established Patient Charge Established Patient Point Assignment: 85 Established Patient Point Charge: EP Level 3 (80-115)
== END 2025-03-02 14:10 | disposition home or self-care (01) ==
LOC: HODAHC 13:22
PROVIDERS: Supervising Provider Internal Medicine
DX: Z09 Encounter for follow-up examination after completed treatment for conditions other than malignant neoplasm (principal); Z86.79 Personal history of other diseases of the circulatory system
CPT/HCPCS: 99213; G0463